=== PATIENT | female | born 1955 | race Caucasian/White ===

== ENCOUNTER → 2017-07-15 | Outpatient (CLI) | payer OTHER ==
[~2017-07-15] VITALS: Ht 165.1 cm; Wt 122.5 kg
[~2017-07-15] MED LIST: COUMADIN 2 MG TA2 M1 PO; CRANBERRY500 MG PO; CYMBALTA30 MG PO; FLONASE 0.05%50 MCG NASAL; LASIX 40 MG TAB40 M2 PO; LOSARTAN POTAS100 MG PO; OXCARBAZEPINE300 MG PO; OXYCODONE HCL20 M1 PO; PREDNISONE 10 M10 MG PO; PRENATAL PO; PROTONIX40 M1 PO; PROZAC10 MG PO; SYNTHROID150 MCG PO; SYSTANE 0.3-0.1 EACH OPHTHALMIC; VITAMIN D1000 UNI1 PO
--- NOTE | ~2017-07-15 | S ---
[facility] [place] [address] SURGICAL PATH RPT PROCEDURE Name: ALIS JOSEPH Room #: REG [facility].#: [id number] Admission: 07/15/17 Date of : 53 Discharge: Report #: [id number] Path Case #: [id number] PATHOLOGY REPORT COLLECTION DATE: 07/15/2017 RECEIVED DATE: 07/15/2017 SUBMITTING PHYS: Dr. Alonzo Holbrook OTHER PHYS: Dr. David Abreu SPECIMEN(S) RECEIVED: A.Biopsy small bowel B.Biopsy antrum C.Random colon biopsies D.Bx polyp splenic flexure * * * * * * * * * * * * FINAL DIAGNOSIS: A. Small bowel mucosa, endoscopic biopsy: - No significant diagnostic abnormalities present. - Negative for villous blunting or increase in intraepithelial lymphocytosis. B. Gastric mucosa, antrum, endoscopic biopsy: - Moderate reactive gastropathy. - Negative for intestinal metaplasia or atrophy. - Negative for Helicobacter pylori. C. Large intestinal mucosa, random colon, endoscopic biopsy: - No diagnostic abnormalities present. D. Polyp, splenic flexure, endoscopic biopsy: - Tubular adenoma admixed with hyperplastic changes. - Negative for high-grade dysplasia. COMMENT: Well controlled Helicobacter pylori immunohistochemical stain performed on block B1 - negative. Part C; Sections of colon biopsy tissues show crypts at regular intervals and no increase in cellularity of lamina propria or within the intraepithelial lymphocytes. There are no granulomata. The collagen layer underneath the epithelium is not thickened. There is no distortion in crypt architecture as well. There is no evidence of dysplasia. (IUV:pit; 07/18/2017) PATHOLOGIST: Tanika Ramires M.D. REPORT ELECTRONICALLY SIGNED BY: Tanika Ramires M.D. DATE/TIME: 07/18/2017 13:44 [facility] [place] [address] SURGICAL PATH RPT PROCEDURE Name: ALIS JOSEPH Room #: REG [facility] Amos#: [id number] Admission: 07/15/17 Date of : 53 Discharge: Report #: [id number] Path Case #: [id number] * * * * * * * * * * * * GROSS PATHOLOGY: A. Received in formalin labeled "AlisDARLEEN Aden small bowel," are 2 segments of gaming soft tissue measuring 0.7 x 0.3 x 0.3 cm in aggregate dimensions and ranging from 0.3 to 0.4 cm in maximum dimension. The specimen is submitted entirely in cassette A1. B. Received in formalin labeled "Alis Joseph, DARLEEN antrum," are 2 segments of gaming soft tissue measuring 0.8 x 0.3 x 0.2 cm in aggregate dimensions and measuring 0.4 cm each in maximum dimension. The specimen is submitted entirely in cassette B1. C. Received in formalin labeled "Alis Joseph, DARLEEN random colon," are 5 segments of gaming soft tissue measuring 1.4 x 1.0 x 0.2 cm in aggregate dimensions and ranging from 0.2 to 0.6 cm in maximum dimension. The specimen is submitted entirely in cassette C1. D. Received in formalin labeled "Alis Joseph, BX polyp splenic flexure," is a segment of gaming soft tissue measuring 0.6 cm in maximum dimension. The specimen is submitted entirely in cassette D1. (TSD; 07/15/2017) CLINICAL HISTORY: Pre-OP DX: Abdominal pain, Hx colon polyps Rule out celiac disease, rule out H. pylori, rule out microscopic colitis INITIAL CPT CODE(S): A; 56157 B; 08005, 52382 C; 52863 D; 72550 Professional services performed by [facility] at [facility] [address], [place] [address] Technical services performed by [facility] at [address] [place] [address], [address], [place] [address]. [facility] [address] [place] [address] PHONE: [phone] DIRECTOR: Tra Roberts M.D. * * * END OF REPORT * * *
[2017-07-15 10:48] LABS: INR 1.3; PROTIME 13.4 Seconds (9.3-11.4)
== END | disposition home or self-care (01) ==
LOC: GI 09:39
PROVIDERS: Internal Medicine Gastroenterology
DX: D12.3 Benign neoplasm of transverse colon (principal); K57.30 Diverticulosis of large intestine without perforation or abscess without bleeding; K64.8 Other hemorrhoids; K64.4 Residual hemorrhoidal skin tags; K44.9 Diaphragmatic hernia without obstruction or gangrene; K31.9 Disease of stomach and duodenum, unspecified; I10 Essential (primary) hypertension; E03.9 Hypothyroidism, unspecified; J44.9 Chronic obstructive pulmonary disease, unspecified; M79.7 Fibromyalgia; F32.9 Major depressive disorder, single episode, unspecified; G47.33 Obstructive sleep apnea (adult) (pediatric); K21.9 Gastro-esophageal reflux disease without esophagitis; Z87.19 Personal history of other diseases of the digestive system; Z98.890 Other specified postprocedural states; Z98.41 Cataract extraction status, right eye; Z88.2 Allergy status to sulfonamides; Z88.8 Allergy status to other drugs, medicaments and biological substances; Z79.899 Other long term (current) drug therapy; Z87.891 Personal history of nicotine dependence
CPT/HCPCS: 62110; 62900

== ENCOUNTER → 2017-11-22 | Outpatient (CLI) | payer OTHER | LOC: HYPER 06:41 | DX: T81.4XXD Infection following a procedure, subsequent encounter (principal); I10 Essential (primary) hypertension; E03.9 Hypothyroidism, unspecified; K21.9 Gastro-esophageal reflux disease without esophagitis; E66.01 Morbid (severe) obesity due to excess calories; G47.30 Sleep apnea, unspecified; J45.909 Unspecified asthma, uncomplicated; F41.9 Anxiety disorder, unspecified; F32.9 Major depressive disorder, single episode, unspecified; Z86.718 Personal history of other venous thrombosis and embolism; Z68.42 Body mass index [BMI] 45.0-49.9, adult; Y83.8 Other surgical procedures as the cause of abnormal reaction of the patient, or of later complication, without mention of misadventure at the time of the procedure ==

== ENCOUNTER → 2018-01-18 | Outpatient (CLI) | payer OTHER | LOC: HYPER 07:12 | DX: T81.49XD Infection following a procedure, other surgical site, subsequent encounter (principal); L98.492 Non-pressure chronic ulcer of skin of other sites with fat layer exposed; E66.01 Morbid (severe) obesity due to excess calories; E03.9 Hypothyroidism, unspecified; G47.30 Sleep apnea, unspecified; I10 Essential (primary) hypertension; K21.9 Gastro-esophageal reflux disease without esophagitis; J45.909 Unspecified asthma, uncomplicated; M32.9 Systemic lupus erythematosus, unspecified; M19.90 Unspecified osteoarthritis, unspecified site; F41.9 Anxiety disorder, unspecified; F32.9 Major depressive disorder, single episode, unspecified; Z68.42 Body mass index [BMI] 45.0-49.9, adult; Z87.891 Personal history of nicotine dependence; Z86.718 Personal history of other venous thrombosis and embolism; Y83.8 Other surgical procedures as the cause of abnormal reaction of the patient, or of later complication, without mention of misadventure at the time of the procedure ==